=== PATIENT | female | born 1970 | race Caucasian/White ===

== ENCOUNTER 2020-01-24 07:49 | Outpatient (CLI) | payer BC, SELFPAY | END 2020-01-24 07:50 | disposition home or self-care (01) | PROVIDERS: PCP Internal Medicine; Visit Provider Obstetrics & Gynecology | DX: N92.0 Excessive and frequent menstruation with regular cycle (principal) | CPT/HCPCS: 36415; 86850; 86900; 86901 ==

== ENCOUNTER 2020-01-29 00:59 | Outpatient (CLI) | payer BC, SELFPAY ==
[2020-01-29 18:28] LABS: SARS-CoV-2 RNA PCR Negative
== END 2020-01-29 01:00 | disposition home or self-care (01) ==
LOC: ANHCOVIDDT 00:59
PROVIDERS: PCP Internal Medicine; Visit Provider Obstetrics & Gynecology
DX: Z01.812 Encounter for preprocedural laboratory examination (principal); Z20.828 Contact with and (suspected) exposure to other viral communicable diseases
CPT/HCPCS: 87635; C9803; U0003

== ENCOUNTER 2020-02-01 15:16 | Inpatient (IN) | payer BC, SELFPAY ==
[2020-01-22 15:34] VITALS: BMI 31.8
[2020-01-31] VITALS (16 sets, daily range): BP systolic 110–149; BP diastolic 61–89; PULSE 46–116; RESP 10–18; TEMP 35.7–36.3; O2SAT 96–100
[2020-01-31] MEDS: LACTATED RINGERS 1,000 ML 30 ML IV CONT ×2 (10:07→13:48)
[2020-01-31] MEDS: ACETAMINOPHEN 500 MG TABLET 1000 MG PO (10:07)
[2020-01-31] MEDS: KETOROLAC 15 MG/ML VIAL (*BKC) IV PUSH (10:07)
--- NOTE | 2020-01-31 10:31 | PM.IMHP ---
H&P: HPI History of Present Illness Date/Time: 01/31/20 10:31 Chief complaint: Menorrhagia/ Uterine Fibroids Narrative: Alba Stephens is a 49 year old female 3 para 3 with a longstanding history of abnormal uterine bleeding and fibroid. Patient underwent an ablation 2 years ago along minimal relief of heavy cycles decision made to proceed hysterectomy Review of Systems Constitutional: Constitutional: Reports fatigue Gastrointestinal: Gastrointestinal: Reports abdominal pain and Reports bloating PMFSH Past Medical History Medical History (Updated 01/31/20 @ 10:39 by Chet Iglesias MD) Abnormal uterine bleeding (AUB) Anxiety Surgical History Surgical History (Updated 01/31/20 @ 10:38 by Chet Iglesias MD) H/O: History of appendectomy History of endometrial ablation History of laparoscopy S/P gastric surgery Social History Social History Smoking status: Never smoker Spiritual care concerns: No Meds Home Medications and Allergies Home Medications Medication Instructions Recorded Confirmed Type calcium carbonate [Calcium 600] 600 mg PO TID 01/22/20 01/22/20 History cyanocobalamin (vitamin B-12) 2,000 mcg PO DAILY 01/22/20 01/22/20 History [Vitamin B-12] melatonin 10 mg PO HS 01/22/20 01/22/20 History multivitamin 1 tablet PO DAILY 01/22/20 01/22/20 History Allergies Allergy/AdvReac Type Severity Reaction Status Date / Time NSAIDS (Non-Steroidal AdvReac DUE TO Verified 01/22/20 15:42 Anti-Inflamma GASTRIC SLEEVE Exam Const: General: no acute distress Resp: Auscultation: clear to auscultation bilaterally Cardio: Rate: regular rate Rhythm: regular rhythm GI: GI Palp: Yes Soft to palpation Auscultation: normal bowel sounds : External Female Exam: normal external appearance Extrem: General: normal to inspection Assessment and Plan Assessment and plan (1) Anxiety: Code(s): F41.9 - Anxiety disorder, unspecified Status: Acute (2) History of laparoscopy: Code(s): Z98.890 - Other specified postprocedural states Status: Acute (3) S/P gastric surgery: Code(s): Z98.890 - Other specified postprocedural states Status: Acute (4) History of appendectomy: Code(s): Z90.49 - Acquired absence of other specified parts of digestive tract Status: Acute (5) H/O: : Code(s): Z98.891 - History of uterine scar from previous surgery Status: Acute (6) History of endometrial ablation: Code(s): Z98.890 - Other specified postprocedural states Status: Acute (7) Abnormal uterine bleeding (AUB): Code(s): N93.9 - Abnormal uterine and vaginal bleeding, unspecified Status: Acute Assessment and Plan: Scheduled for a laparoscopic assisted vaginal hysterectomy BSO with possible MONICA. Risk and benefits reviewed with patient in detail including bleeding, infection, trauma and damage to surrounding organs. Patient agrees to proceed with surgery.
[2020-01-31 10:32] LABS: Hematocrit 38.4 % (37.0-47.0); Hemoglobin 12.5 g/dL (12.0-15.0)
[2020-01-31] MEDS: SCOPOLAMINE 1.5 MG PATCH TRANSDERM (10:34)
[2020-01-31] MEDS: ceFAZolin 2 GM/D5W 50 ML 2 GM/50 ML BAG IVPB (10:48)
--- NOTE | 2020-01-31 13:26 | WPDHPUPDATE1 ---
History and Physical Update Update Date/Time: 01/31/20 13:26 History and Physical has been reviewed, including an updated exam of the patient. There are NO changes in the patient's condition. Risks, benefits, and alternatives have been discussed and questions answered. Patient agrees to proceed with procedure.
--- NOTE | 2020-01-31 13:42 | PM.PROC ---
Procedure Note - Detailed Date of procedure: 01/31/20 Pre-op diagnosis: Menorrhagia/ Uterine Fibroids Post-op diagnosis: same Procedure performed: diagnostic laparoscopy with Total abdominal hysterectomy with bilateral salpingo-oophorectomy Description of procedure: The patient was taken to the operating room placed under anesthesia in a Dorsal lithotomy position. A bivalve was placed into the vagina and anterior lip of the cervix was grasped with a single-tooth tenaculum uterus was sounded to 8centimeter. A uterine manipulator was placed and the bivalve speculum was removed. Attention then turned to the abdomen the Veress needle was introduced into the abdomen after 2cc lidocaine was injected in the umbilical fold. The opening pressure is high on 1st attempt. with gas noted to be 11. The Veress needle was removed and reintroduced into the cavity and the gas was reinsufflated . The trocar was then advanced under direct visualization with the camera and the omentum noted to be adhered to the anterior wall of the abdomen. Trocar advanced slowly advanced after freeing the adhesions and noted a densely adhesed uterus to the anterior abdominal and adhered left ovary and difficulty maintaining pneumo. The instruments were removed and converted to a p abdominal hysterectomy. She was prepped and draped in usual sterile fashion. The abdomen was examined and the fundus is noted at U -4 decision was made for a Pfannenstiel incision which was made with a scalpel and carried down to the underlying fascia. Fascia was nicked in the midline with the scalpel and extended laterally using Greco scissors. Bleeding vessels in the subcutaneous tissue were cauterized for hemostasis the fascia was dissected off using sharp and blunt dissection while tenting with Wily curiel. The peritoneum is grasped with a Peon and entered using Metzenbaum scissors and the incision is extended with blunt traction. The pelvis was inspected, the bowel was packed away using moist laparotomy sponges, and the Dior was placed. The cornua were grasped with large peans. The round ligaments were doubly ligated with 0 Vicryl, transected, and the anterior leaf of the broad ligament incised using Metzenbaum submitting in the midline. The infundibular ligament was doubly clamped transected and suture ligated with 0 Vicryl. This occurred on the right. The left uterine ovarian Ligament was transected and suture ligated with 0 Vicryl suture. The uterine vessels are skeletonized, clamped, transected, and suture ligated with 0 Vicryl. The cardinal and uterosacral ligaments are serially clamped, transected, and suture ligated with 0 Vicryl. The uterosacral ligaments are tagged for future use. A scalpel was used anteriorly to enter the vaginal cuff. The vaginal cuff is grasped with long Allis clamps as the specimen is amputated using Roosevelt scissors. The specimen is fully amputated and passed off. The vaginal cuff was closed using 0 Vicryl in a running lock fashion 3 additional figure 8 sutures are required for hemostasis in the midline anteriorly. The pelvis is irrigated and noted to be hemostatic. The left ovary identified and careful sharp and plunt dissection freeeing it from adhesions. the left infundibulopelvic ligament was then doubly clamped transected and suture ligated with 0 Vicryl suture. The remnant tubes were removed with the ovaries. Good hemostasis is noted at both pedicles. the abdomen irrigated and hemoderm placed over adhesions for hemostasis. The instruments and lap sponges are removed. The fascia is closed using 0 Vicryl in a running fashion. Subcutaneous tissues are irrigated and made hemostatic using Bovie cautery. the subcutaneous tissue was closed with 3 0 plain gut The skin is closed using 4 0 Vicryl in a subcuticular fashion. Dermaflex was placed over the incision. Sponge instrument and needle counts are correct per the OR staff. Patient was given Ancef prior to the surgery.
[2020-01-31] MEDS: fentaNYL CITRATE INJ (*CRX) 100 MCG/2 ML VIAL 25 MCG IV PUSH ×8 (14:15→15:02)
--- NOTE | 2020-01-31 15:15 | PC.NURSE ---
This patient, Alba Stephens, was received from PACU on 01/31/20 at 1515. Personal belongings list checked and signed. Patient/family oriented to unit policies and routines
[2020-01-31] MEDS: DEXTROSE 5%/LACTATED RINGERS 1,000 ML 125 ML IV CONT ×2 (15:31→22:52)
[2020-01-31] MEDS: METOCLOPRAMIDE HCL INJ 10 MG/2 ML VIAL IV PUSH (15:31)
[2020-01-31] MEDS: MORPHINE SULFATE (*CRX) 4 MG/ML INJ IV PUSH ×2 (16:27→20:15)
[2020-01-31] MEDS: HYDROcodone/acetaminophen (*CRX) 5-325 MG TABLET 1 TAB PO (19:15)
[2020-01-31] MEDS: SIMETHICONE 80 MG TAB.CHEW PO (20:15)
[2020-01-31] MEDS: ESTRADIOL 7 DAY 0.05 MG PATCH TRANSDERM (21:11)
[2020-01-31] MEDS: HYDROcodone/acetaminophen (*CRX) 10-325 MG TABLET 1 TAB PO (22:48)
[2020-02-01] MEDS: HYDROcodone/acetaminophen (*CRX) 10-325 MG TABLET 1 TAB PO ×8 (01:46→22:59)
[2020-02-01 04:50] VITALS: BP 95/58; PULSE 70; RESP 16; TEMP 36.3; O2SAT 98
[2020-02-01 08:38] VITALS: BP 105/64; PULSE 106; RESP 18; TEMP 36.9; O2SAT 98
[2020-02-01] MEDS: SIMETHICONE 80 MG TAB.CHEW PO (08:38)
[2020-02-01 09:37] LABS: Anion Gap 6 mmol/L (8-16); Blood Urea Nitrogen 9 mg/dL (7-17); Calcium 8.4 mg/dL (8.4-10.2); Carbon Dioxide 24 mmol/L (22-30); Chloride 102 mmol/L (98-107); Estimated CRCL calculation 77 ml/min; Estimated Glomerular Filt Rate > 60; Glucose 225 mg/dL (65-105); Potassium 4.1 mmol/L (3.4-5.0); Sodium 132 mmol/L (137-145)
--- NOTE | 2020-02-01 10:42 | PM.GYNPNOP ---
ADMINISTRATIVE SERVICES COORDINATOR - A/P Assessment and plan (1) Abnormal uterine bleeding (AUB): Code(s): N93.9 - Abnormal uterine and vaginal bleeding, unspecified Status: Acute Assessment and Plan: continue with postoperative care. Postoperative Procedures: Procedures Operation Date: 01/31/20 12:00 Actual Procedures Side Surgeon p Laparoscopic Assisted Vaginal Hysterectomy, Bilateral Salpingo-Oophorectomy, CONVERTED TO OPEN HYSTERECTOMY Not Applicable Chet Iglesias MD Time Spent With Patient Time: Total time spent is greater than 50% in coordination of care (as documented) at patient's floor/unit and/or counseling patient: Time with patient: less than 15 minutes ADMINISTRATIVE SERVICES COORDINATOR- PN:Subj Post-Op Subjective Date/time seen: 02/01/20 10:42 Patient reports doing okay pain controlled. Exam Const: General: comfortable GI: Other: incision c/d/i soft abdomen ADMINISTRATIVE SERVICES COORDINATOR - PN: Obj Data Vital Signs Vital Signs: Vital Signs - 24 hr 01/31/20 11:00 01/31/20 13:48 01/31/20 14:00 Temperature 35.7 C L 36.3 C L Pulse Rate 60 65 47 L Respiratory Rate 18 14 10 L Blood Pressure 138/79 139/89 140/77 Pulse Oximetry 100 100 100 01/31/20 14:15 01/31/20 14:30 01/31/20 14:45 Temperature Pulse Rate 46 L 73 51 L Respiratory Rate 17 17 12 Blood Pressure 146/75 H 137/76 148/80 H Pulse Oximetry 100 96 96 01/31/20 15:00 01/31/20 15:10 01/31/20 15:15 Temperature 36.2 C L Pulse Rate 64 80 59 L Respiratory Rate 12 13 16 Blood Pressure 145/80 H 115/74 128/77 Pulse Oximetry 96 96 97 01/31/20 15:30 01/31/20 15:45 01/31/20 16:00 Temperature Pulse Rate 58 L 55 L 63 Respiratory Rate 16 16 16 Blood Pressure 133/66 119/61 126/67 Pulse Oximetry 98 98 97 01/31/20 16:30 01/31/20 17:00 01/31/20 20:20 Temperature 36.2 C L Pulse Rate 57 L 58 L 116 H Respiratory Rate 16 18 16 Blood Pressure 143/64 H 149/73 H 127/72 Pulse Oximetry 99 98 98 01/31/20 23:00 02/01/20 04:50 Temperature 36.3 C L Pulse Rate 77 70 Respiratory Rate 16 16 Blood Pressure 110/67 95/58 L Pulse Oximetry 98 Intake/Output Intake/Output: Intake & Output 01/29/20 01/30/20 01/31/20 02/01/20 23:59 23:59 23:59 23:59 Intake Total 1550 340 Output Total 775 550 Balance 775 -210 Meds/Results Medications: Active Medications Generic Name Dose Route Start Last Admin Trade Name Freq PRN Reason Stop Dose Admin Hydrocodone Bitart/Acetaminophen 1 tab 01/31/20 13:32 02/01/20 08:37 [place] 10-325 Mg PO 1 tab Q3H PRN Administration Pain Rated 6 or Greater Hydrocodone Bitart/Acetaminophen 1 tab 01/31/20 13:32 01/31/20 19:15 [place] 5-325 Mg PO 1 tab Q3H PRN Administration Pain Rated 5 or Less Bisacodyl 10 mg 01/31/20 13:32 Dulcolax Suppository RECTAL ONCE PRN Constipation Estradiol 0.05 mg 01/31/20 13:35 01/31/20 21:11 [place] 7 Day TRANSDERM 0.05 mg Fr@0900 SENTHIL Administration Estrogens Conjugated 1 applic 01/31/20 11:50 Premarin Vaginal Cream VAGINAL ONCE SENTHIL Dextrose/Lactated Ringer's 1,000 mls @ 125 mls/hr 01/31/20 13:35 01/31/20 22:52 Dextrose 5%/Lactated Ringers IV CONT 125 mls/hr .Q8H SENTHIL Administration Metoclopramide HCl 10 mg 01/31/20 13:32 01/31/20 15:31 Reglan IV PUSH 10 mg Q6H PRN Administration Nausea Morphine Sulfate 4 mg 01/31/20 13:32 01/31/20 20:15 Morphine Sulfate Inj (*Crx) IV PUSH 4 mg Q4H PRN Administration Pain Rated 7-10 Naloxone HCl 0.1 mg 01/31/20 13:32 Narcan IV PUSH Q2M PRN Respiratory rate less than 10 Ondansetron HCl 4 mg 01/31/20 13:32 Zofran Inj IV PUSH Q6H PRN Nausea Senna/Docusate Sodium 2 tab 01/31/20 21:00 01/31/20 23:02 Senokot S Tablet PO Not Given HS SENTHIL Simethicone 80 mg 01/31/20 13:32 02/01/20 08:38 Mylicon PO 80 mg Q2H PRN Administration Gas Labs CBC & Chem 7: 01/31/20 10:06 02/01/20 09:03 Labs: Lab
--- NOTE | 2020-02-01 12:44 | WPDANESPN ---
Anes - Prog Note Post-Op Date/Time: 02/01/20 12:44 Cardiovascular status: normal Respiratory status: normal Airway patency: baseline Mental status: baseline Post-Op hydration status: normal Vital Signs: Last Vital Signs Temp 36.3 C L 02/01/20 04:50 Pulse 70 02/01/20 04:50 Resp 16 02/01/20 04:50 BP 95/58 L 02/01/20 04:50 Pulse Ox 98 02/01/20 04:50 Pain Score (VAS): 210 I/O: Intake & Output 01/31/20 02/01/20 02/01/20 23:59 07:59 15:59 Intake Total 1300 340 Output Total 575 550 Balance 725 -210 Laboratory Tests 01/31/20 10:06 02/01/20 09:03 02/01/20 09:03 Sodium 132 L Potassium 4.1 Chloride 102 Carbon Dioxide 24 Anion Gap 6 L BUN 9 Creatinine 0.80 Estim Creat Clear Calc 77 Estimated GFR > 60 Glucose 225 H Calcium 8.4 Post-procedural complaints: none Patient Feedback: Patient satisfied with anesthetic care.
[2020-02-01 20:00] VITALS: BP 110/69; PULSE 96; RESP 16; TEMP 36.1; O2SAT 98
[2020-02-01] MEDS: SENNA/DOCUSATE SODIUM TABLET 2 TAB PO (22:59)
[2020-02-02] MEDS: HYDROcodone/acetaminophen (*CRX) 10-325 MG TABLET 1 TAB PO ×2 (01:56→07:44)
[2020-02-02 02:08] LABS: Hematocrit 25.1 % (37.0-47.0); Hemoglobin 8.1 g/dL (12.0-15.0)
[2020-02-02] MEDS: SIMETHICONE 80 MG TAB.CHEW PO (07:44)
[2020-02-02 08:00] VITALS: BP 140/87; PULSE 107; RESP 18; TEMP 37.1
[2020-02-02] MEDS: ONDANSETRON HCL ODT 4 MG TABLET PO (08:31)
--- NOTE | 2020-02-02 10:31 | PC.NURSE ---
Self care discharge instructions given to pt. including when to call Dr. Iglesias office for appt. in 1 week. Pt. verbalized understanding. Abdominal binder applied. No questions or concerns verbalized.
--- NOTE | 2020-02-02 10:37 | PM.GYNPNOP ---
WOOL SHEARER - A/P Assessment and plan (1) S/P MONICA-BSO: Code(s): Z90.710 - Acquired absence of both cervix and uterus; Z90.722 - Acquired absence of ovaries, bilateral; Z90.79 - Acquired absence of other genital organ(s) Status: Acute Assessment and Plan: d/c home f/u in 1 week. Postoperative Procedures: Procedures Operation Date: 01/31/20 12:00 Actual Procedures Side Surgeon p Laparoscopic Assisted Vaginal Hysterectomy, Bilateral Salpingo-Oophorectomy, CONVERTED TO OPEN HYSTERECTOMY Not Applicable Chet Iglesias MD Time Spent With Patient Time: Total time spent is greater than 50% in coordination of care (as documented) at patient's floor/unit and/or counseling patient Time with patient: less than 15 minutes WOOL SHEARER- PN:Subj Post-Op Subjective Date/time seen: 02/02/20 10:37 S: pain controlled doing well walking passing gas Exam Narrative: Exam Narrative: inc c/d/i abdomen soft appropriately tender WOOL SHEARER - PN: Obj Data Vital Signs Vital Signs: Vital Signs - 24 hr 02/01/20 20:00 02/02/20 08:00 Temperature 36.1 C L 37.1 C Pulse Rate 96 107 H Respiratory Rate 16 18 Blood Pressure 110/69 140/87 Pulse Oximetry 98 Intake/Output Intake/Output: Intake & Output 01/30/20 01/31/20 02/01/20 02/02/20 23:59 23:59 23:59 23:59 Intake Total 1550 840 Output Total 775 1050 Balance 775 -210 Meds/Results Medications: Active Medications Generic Name Dose Route Start Last Admin Trade Name Freq PRN Reason Stop Dose Admin Hydrocodone Bitart/Acetaminophen 1 tab 01/31/20 13:32 02/02/20 07:44 [place] 10-325 Mg PO 1 tab Q3H PRN Administration Pain Rated 6 or Greater Hydrocodone Bitart/Acetaminophen 1 tab 01/31/20 13:32 01/31/20 19:15 [place] 5-325 Mg PO 1 tab Q3H PRN Administration Pain Rated 5 or Less Bisacodyl 10 mg 01/31/20 13:32 Dulcolax Suppository RECTAL ONCE PRN Constipation Estradiol 0.05 mg 01/31/20 13:35 01/31/20 21:11 [place] 7 Day TRANSDERM 0.05 mg Fr@0900 SENTHIL Administration Estrogens Conjugated 1 applic 01/31/20 11:50 Premarin Vaginal Cream VAGINAL ONCE SENTHIL Dextrose/Lactated Ringer's 1,000 mls @ 125 mls/hr 01/31/20 13:35 01/31/20 22:52 Dextrose 5%/Lactated Ringers IV CONT 125 mls/hr .Q8H SENTHIL Administration Metoclopramide HCl 10 mg 01/31/20 13:32 01/31/20 15:31 Reglan IV PUSH 10 mg Q6H PRN Administration Nausea Morphine Sulfate 4 mg 01/31/20 13:32 01/31/20 20:15 Morphine Sulfate Inj (*Crx) IV PUSH 4 mg Q4H PRN Administration Pain Rated 7-10 Naloxone HCl 0.1 mg 01/31/20 13:32 Narcan IV PUSH Q2M PRN Respiratory rate less than 10 Ondansetron HCl 4 mg 01/31/20 13:32 Zofran Inj IV PUSH Q6H PRN Nausea Senna/Docusate Sodium 2 tab 01/31/20 21:00 02/01/20 22:59 Senokot S Tablet PO 2 tab HS SENTHIL Administration Simethicone 80 mg 01/31/20 13:32 02/02/20 07:44 Mylicon PO 80 mg Q2H PRN Administration Gas Labs CBC & Chem 7: 02/02/20 02:01 02/01/20 09:03 Labs: Laboratory Results - last 24 hr 02/02/20 02:01 Hgb 8.1 L D Hct 25.1 L
--- NOTE | 2020-02-14 11:54 | P.DS_ITS ---
DS: Admitting Diagnosis Admitting Diagnosis Admitting Diagnosis: Menorrhagia/ Uterine Fibroids DS: Discharge Diagnosis Discharge Diagnosis (1) Abnormal uterine bleeding (AUB): Code(s): N93.9 - Abnormal uterine and vaginal bleeding, unspecified Status: Acute DS: Summary Hospital Course Reason for hospitalization: s/p laparoscopy converted to total abdominal hysterectomy with bilateral salpingectomy Hospital Course: Patient hospital course uncomplicated discharged home on post op day 2. pain controlled with norco and tylenol. tolerating regular diet. ambulating well. Time Spent with Patient Time attestation: Total time spent providing and/or coordinating discharge services: Exam Const: General: no acute distress GI: GI Palp: Yes Soft to palpation DS: Data Data Completed and Pending Completed studies during hospitalization: Pending at discharge 01/31/20 13:09 Surgical [PTH] Routine Discharge Plan Discharge Attending physician on discharge: Chet Iglesias Discharging Clinician: Chet Iglesias Anticipated Discharge Date/Time: 02/02/20 10:29 Patient Disposition: Home, Self-Care Activity: may shower, may drive after 2 weeks and pelvic rest Diet: regular Patient Instructions: Antibiotic Form, Hysterectomy (DC) Stand Alone Forms: General Discharge Information Follow-up/Referrals: Chet Iglesias MD [Physician] - 1 Week Discharge Medications: New hydrocodone-acetaminophen [[place]] 10-325 mg Tablet 1 tab PO Q3H PRN (Reason: Pain Rated 6 Or Greater) Qty: 30 RF: 0 ondansetron HCl [Zofran] 4 mg tablet 4 mg PO Q8H PRN (Reason: nausea and vomiting) Qty: 30 RF: 0 metaxalone [Skelaxin] 800 mg tablet 800 mg PO TID PRN (Reason: muscle pain) Qty: 30 RF: 0 Continued multivitamin Tablet 1 tablet PO DAILY RF: 0 cyanocobalamin (vitamin B-12) [Vitamin B-12] 1,000 mcg Tablet 2,000 mcg PO DAILY RF: 0 calcium carbonate [Calcium 600] 600 mg calcium (1,500 mg) Tablet 600 mg PO TID RF: 0 melatonin 10 mg Tablet Extended Release 10 mg PO HS RF: 0 Date of admission: 02/01/20 15:16 Primary Care Provider: John,Ritesh Betts Admitting Provider: Chet Iglesias Interventions: Discharge Disposition Last Done: 02/02/20 10:50 Discharge Date/Time: 02/02/20 10:50 Attending physician on admission: Chet Iglesias Condition: Stable
== END 2020-02-02 10:50 | disposition home or self-care (01) | DRG 743 ==
LOC: ANHSURGERY 15:19 → ANHOB2 02-02 10:34
PROVIDERS: Admitting Provider Obstetrics & Gynecology; PCP Internal Medicine; Visit Provider Obstetrics & Gynecology
PROC: 0UT9FZZ Resection of Uterus, Via Natural or Artificial Opening With Percutaneous Endoscopic Assistance (ICD-10-PCS; CPT 58150; principal; 2020-01-31 12:00)
DX: N92.0 Excessive and frequent menstruation with regular cycle (principal); Z53.31 Laparoscopic surgical procedure converted to open procedure; N80.0 Endometriosis of uterus; N73.6 Female pelvic peritoneal adhesions (postinfective); D25.9 Leiomyoma of uterus, unspecified; N83.01 Follicular cyst of right ovary; F41.9 Anxiety disorder, unspecified; Z98.51 Tubal ligation status
CPT/HCPCS: 58150; 49320; 36415; 80048; 85014; 85018; 88307; 99199; A9270; G0378; J0690; J1100; J1885; J2250; J2270; J2370; J2405; J2704; J2710; J2765; J3010; J7120; J7121

== ENCOUNTER 2020-02-08 11:30 | Outpatient (CLI) | payer BC, SELFPAY ==
[2020-02-08 12:24] LABS: Hemoglobin A1C 4.8 % (<5.7)
== END 2020-02-08 11:31 | disposition home or self-care (01) ==
PROVIDERS: PCP Internal Medicine; Visit Provider Obstetrics & Gynecology Gynecology
DX: R79.9 Abnormal finding of blood chemistry, unspecified (principal)
CPT/HCPCS: 36415; 83036

== ENCOUNTER 2023-01-11 08:10 | Outpatient (CLI) | payer BC, SELFPAY ==
--- NOTE | ~2023-01-11 | US_ITS ---
EXAMINATION: US soft tissue abdomen DATE: 01/11/2023 08:43 INDICATION: Right lower quadrant abdominal mass. TECHNIQUE: Multiple grayscale and Doppler ultrasound images of the abdomen were obtained. COMPARISON: None FINDINGS: In the subcutaneous fat in the right lower quadrant of the abdomen, there is an ill-defined 1.1 x 0.6 x 1.4 cm hyperechoic mass. IMPRESSION: 1. Ill-defined 1.4 cm hyperechoic subcutaneous mass in the right lower quadrant, likely inflammation. Reviewed, dictated and finalized at location E. IMPRESSION: 1. Ill-defined 1.4 cm hyperechoic subcutaneous mass in the right lower quadrant , likely inflammation.
== END 2023-01-11 08:11 ==
DX: R19.03 Right lower quadrant abdominal swelling, mass and lump (principal); R93.89 Abnormal findings on diagnostic imaging of other specified body structures
CPT/HCPCS: 76705

== ENCOUNTER → 2023-02-10 10:16 | Outpatient (CLI) | payer BC, SELFPAY ==
--- NOTE | ~2023-02-10 | MM_ITS ---
EXAMINATION: MM screening nate BI w chris HISTORY: Screening mammogram TECHNIQUE: Craniocaudal and mediolateral oblique 3-D tomosynthesis images were obtained and synthetic 2-D images were generated. CAD analysis was submitted and interpreted. COMPARISON: 10/29/2018 bilateral screening mammogram BREAST PARENCHYMAL COMPOSITION: There are scattered areas of fibroglandular density. FINDINGS: Bilateral mammographic asymmetries. Bilateral diagnostic mammography is recommended, with ultrasound if required. IMPRESSION: 1. Bilateral mammographic asymmetries 2. Bilateral diagnostic mammography is recommended, with ultrasound if required BI-RADS Category 0: Incomplete: Needs additional imaging evaluation. Reviewed, dictated and finalized at location A.
== END ==
DX: Z12.31 Encounter for screening mammogram for malignant neoplasm of breast (principal); R92.8 Other abnormal and inconclusive findings on diagnostic imaging of breast
CPT/HCPCS: 77063; 77067

== ENCOUNTER 2023-03-08 08:14 | Outpatient (CLI) | payer BC, SELFPAY ==
--- NOTE | ~2023-03-08 | MMUS_ITS ---
EXAMINATION: MM diagnostic nate BI w chris, US breast BI limited HISTORY: Bilateral mammographic asymmetries reported on 02/10/2023 screening mammogram TECHNIQUE: Additional 3-D tomosynthesis images of both breasts were performed and synthetic 2-D image s were generated. CAD analysis was submitted and interpreted. High resolution upper outer and lower-o uter quadrant bilateral breast ultrasound was performed. COMPARISON: 02/10/2023 bilateral screening mammogram FINDINGS: MAMMOGRAPHIC FINDINGS: No suspicious mass or architectural distortion or any malignant calcification, skin thickening or ret raction is detected in either breast. ULTRASOUND: No suspicious mass or shadowing of either breast is evident. Right breast: 11:00 12 cm from nipple: 2.2 x 2.9 mm cyst 12:00 12 cm from nipple: Circumscribed 2.6 x 3 x 3.3 mm hypoechoic lesion, probably benign; six-month targeted right breast ultrasound follow-up is recommended Left breast: 2:00 18 cm from nipple: Normal-appearing 6.4 x 9.2 x 4.1 mm lymph node. IMPRESSION: 1. Probable benign 3.3 mm hypoechoic lesion of right breast at 12:00 12 cm from nipple 2. 6 month targeted 12:00 right breast ultrasound follow-up is recommended BI-RADS category 3, probably benign findings. Reviewed, dictated and finalized at location A. IMPRESSION: 1. Probable benign 3.3 mm hypoechoic lesion of right breast at 12:00 12 cm from nipple 2. 6 month targeted 12:00 right breast ultrasound follow-up is recommended BI-RADS category 3, probably benign findings.
== END 2023-03-08 08:15 ==
LOC: MICIMG 08:15
DX: R92.8 Other abnormal and inconclusive findings on diagnostic imaging of breast (principal)
CPT/HCPCS: 76642; 77062; 77066; G0279